=== PATIENT | female | born 1955 | race Caucasian/White ===

== ENCOUNTER → 2017-04-15 | Outpatient (CLI) | payer OTHER ==
--- NOTE | 2017-04-15 17:20 | CONS ---
CONSULTATION A 61-year-old female patient coming in accompanied by her due to concerns of sleep apnea. The patient was recently hospitalized at [facility] for a bout of atrial fibrillation. This occurred at the time of respiratory tract infection/bronchitis for which she was hospitalized briefly and ultimately she converted to normal sinus rhythm. The patient was discharged home on a combination of metoprolol and Eliquis. Sleep apnea was a concern and for that reason, the patient was referred to me. The patient snores. No witnessed apneas. She denies having any nocturia and denies waking up in the middle of night gasping for air or choking sensation. No restlessness in the lower extremities. She is averaging around 7-8 hours of sleep. Her Alamo score is 8. She has a Mallampati class 4 with significant crowding of the posterior pharynx and she has micrognathia. Current BMI 30.1. No sleepwalking. No sleep talking. No sleep paralysis. No cataplexy. PAST MEDICAL HISTORY: Paroxysmal atrial fibrillation, single episode currently in sinus. Fibrous dysplasia of the right femur and hyperlipidemia. PAST SURGICAL HISTORY: Includes tubal ligation. DRUG ALLERGIES: Not known. OUTPATIENT MEDICATION LIST: Includes metoprolol succinate ER 50 mg p.o. daily, Eliquis 5 mg p.o. b.i.d., ranitidine 150 mg p.o. daily, omeprazole 20 mg p.o. daily. Lipitor 20 mg p.o. daily. SOCIAL HISTORY: Nonsmoker. No history of alcohol. No history of IV drugs. FAMILY HISTORY: History negative for sleep apnea. REVIEW OF SYSTEMS: 12-point review of system was done. Positive findings are mentioned above in the history of present illness. No recent weight gain or weight loss. No head trauma. No substance abuse. No nocturnal chest pain. No nocturnal dyspnea. No nocturnal heartburn. No swelling in the lower extremities. No head trauma. No meningitis. No headaches. No change in mental status. PHYSICAL EXAMINATION: BP is 119/59, pulse 68, respirations 16, temperature 98.3, saturation 96% on room air. BMI 30.1, weight is 181, height is 5 feet 5 inches, neck size is 15 inches. General appearance calm comfortable. HEENT head is atraumatic, normocephalic. NECK: Supple. There is no JVD. No goiter or neck masses. The patient has a Mallampati class 4 with micrognathia. LUNGS: Clear to auscultation. HEART: Sounds are regular. Normal S1, S2. No S3. No murmurs. ABDOMEN: Soft, nontender. No organomegaly. EXTREMITIES: No edema. No cyanosis or clubbing. Skin is negative for wounds or ulcers. NEUROLOGIC: Alert and oriented x3. There is no focal neurological deficit. ASSESSMENT: 1. Suspected obstructive sleep apnea currently under investigation. The patient has snoring with mild degree of hypersomnia Alamo score of 8. She has Mallampati class 4 with micrognathia. 2. Single episode of atrial fibrillation. Currently back in sinus. 3. Hyperlipidemia. PLAN: 1. Sleep in a sidewise body position. 2. Encourage good sleep hygiene measures. 3. Weight loss. 4. Proceed with a screening polysomnogram to look for any significant sleep breathing disorder and decide on treatment accordingly. MMTALITAL / FREDDIEN: [id number] /
== END ==
LOC: SLEEP 14:38
PROVIDERS: ATTEND Internal Medicine Critical Care Medicine
DX: G47.10 Hypersomnia, unspecified (principal); I48.91 Unspecified atrial fibrillation; E78.5 Hyperlipidemia, unspecified; Z79.899 Other long term (current) drug therapy

== ENCOUNTER → 2017-07-22 | Outpatient (CLI) | payer OTHER ==
--- NOTE | 2017-07-22 14:18 | PN ---
PROGRESS NOTE A 61-year-old female patient who is seeing me in followup regarding obstructive sleep apnea. The patient was diagnosed having severe BRADLEY with an AHI of 31. She was also suffering from chronic hypersomnia and sleepiness and Rougon score of 8. On today's evaluation, the patient utilizing her CPAP every night. She is benefitting from the treatment and she is waking up much more alert and refreshed during the day. Her sleep quality is also improved. Based on the compliance data that was collected over the past 30 days, the patient has utilized her CPAP machine every night and her CPAP use for more than 4 hours is above 90%. Average CPAP use around 7.3 hours per night and her average CPAP pressure is around 10.6 cm of water. Her leak factor is 4 L/minute and her AHI while on treatment is down to 1.6. The patient is utilizing an auto CPAP unit with a minimum pressure minimum pressure of 5 and maximum pressure of 20. She has no major somnolence or sleepiness. Rougon score is down to 2. REVIEW OF SYSTEMS: 12-point review of system was done. No sleepwalking or sleep talking. No restlessness of lower extremities. No falls, no change in mental status. No headaches, no cough or sputum production. No respiratory distress. No angina, no palpitations. No nausea, vomiting or diarrhea. No dysuria, frequency, urgency. No wounds, no ulcerations of the skin. No joint pains or arthritis. BP is 133/65, pulse 72, respirations 16. Rougon score is down to 2, weight is 191, temperature 98.3. GENERAL APPEARANCE: Calm, comfortable. Head is atraumatic, normocephalic. Neck is supple. Mallampati class 4. There is no goiter or neck masses. LUNGS: Clear to auscultation. Heart sounds regular rhythm. Normal S1, S2. No S3, S4. No murmurs. ABDOMEN: Soft, nontender. No organomegaly. EXTREMITIES: No edema. No cyanosis or clubbing. NEUROLOGIC: Alert and oriented x3. There is no focal neurological deficits. PSYCHIATRIC: Negative for anxiety or depression. Skin is negative for any wounds or ulceration. IMPRESSION: 1. Severe obstructive sleep apnea with an apnea-hypopnea index of 31, worse during REM. The patient underwent a successful CPAP titration. Currently, she is benefitting from the treatment as reflected on her compliance data and her clinical symptoms. 2. Hypersomnia, improved. 3. Hyperlipidemia. PLAN: This is a successful treatment. The patient is benefitting from the treatment. The patient is compliant. Continue the same setting. The patient is using an AirFit P10 nose pillows. Compliance data was reviewed. No other adjustments will be done for today. Encourage further weight loss and see me back in a year's time in follow up, or earlier if needed. MMODL / IJN: [id number] /
== END ==
LOC: SLEEP 12:05
PROVIDERS: ATTEND Internal Medicine Critical Care Medicine
DX: G47.33 Obstructive sleep apnea (adult) (pediatric) (principal); G47.10 Hypersomnia, unspecified; E78.5 Hyperlipidemia, unspecified; Z99.89 Dependence on other enabling machines and devices

== ENCOUNTER → 2021-10-30 | Outpatient (CLI) | payer MEDICARE ==
--- NOTE | 2021-10-30 15:18 | P.SLEEP ---
History of Present Illness H&P Date: 10/30/21 This is a 65-year-old female patient with known history of obstructive sleep apnea. The patient is coming to see me after many years of interruption's. The patient's last evaluation of the sleep center was on 07/22/2017. The patient was diagnosed having severe BRADLEY with an AHI of 31. She was being treated with therapy and the patient was in a APAP mode pressure minimum of 5 and a maximum of 20. Over the years, the patient showed good success on CPAP therapy and her last compliance evaluation was indicating successful use. Since then, the patient has lost considerable amount of weight. Note that during her last evaluation, she is to wear 191 pounds and currently she is down to 161. The patient since then has quit using her treatment. For now, she has no clear history of slowing. She is going to bed around midnight and she is waking up 8:00 in the morning and she is refreshed and alert during the day. Doesn't take any naps. Her sleep does not seem to be fragmented. No excessive utilization of alcoholic beverages or caffeine. No episodes of falls [address] No sleepwalking. No sleep talking. No new onset parasomnias. No restlessness in lower extremities. She has hypertension and hyperlipidemia and she continues to be under adequate treatment for now. She is coming in for evaluation to see there is any need for ongoing CPAP therapy. She did have issues with atrial fibrillation currently her rhythm is sinus and the patient has stopped her anticoagulants upon the recommendations of her resolution analyst. Review of Systems Constitutional: Denies chills, Denies fever Eyes: denies as per HPI, denies blurred vision, denies bulging eye, denies decreased vision, denies diplopia, denies discharge, denies dry eye, denies irritation, denies itching, denies pain, denies photophobia, denies loss of p eripheral vision, denies loss of vision, denies tunnel vision/blind spots Ears: deny: decreased hearing, ear discharge, earache, tinnitus Ears, nose, mouth and throat: Reports as per HPI Breasts: absent: as per HPI, change in shape, gynecomastia, masses, nipple discharge, pain, skin changes, swelling Respiratory: Reports sleep apnea, Reports snoring Gastrointestinal: Reports as per HPI Genitourinary: Reports as per HPI Menstruation: Reports as per HPI Musculoskeletal: Reports as per HPI Musculoskeletal: absent: ankle pain, ankle stiffness, ankle swelling Integumentary: Reports as per HPI Neurological: Reports as per HPI Psychiatric: Reports as per HPI Endocrine: Reports as per HPI Hematologic/Lymphatic: Reports as per HPI Allergic/Immunologic: Reports as per HPI Past Medical History Past Medical History: Atrial Fibrillation, Hyperlipidemia, Hypertension, Sleep Apnea/CPAP/BIPAP Past Surgical History: Orthopedic Surgery Additional Past Surgical History / Comment(s): ORIF of the right femur Medications and Allergies Home Medications and Allergies Comment(s): Quinapril 2.5 mg by mouth daily, metoprolol 100 mg by mouth daily, Lipitor 10 mg by mouth daily Physical Exam BP is 140/90, pulse is 73, respirations 12, temperature 97.3, saturations 95% room air, weight is 161, body mass index is 26.7 and the patient has an Pauline score of 6. The patient appeared well nourished and normally developed. Vital signs as documented. Head exam is unremarkable. No scleral icterus or corneal arcus noted. Neck is without jugular venous distension, thyromegaly, or carotid bruits. Carotid upstrokes are brisk bilaterally. Lungs are clear to auscultation and percussion. Cardiac exam reveals the PMI to be normally sized and situated. Rhythm is regular. First and second heart sounds normal. No murmurs, rubs or gallops. Abdominal exam reveals normal bowel sounds, no masses, no organomegaly and no aortic enlargement. Extremities are nonedematous and both femoral and pedal pulses are normal.Examination of the skin revealed no evidence of significant rashes, suspicious appearing nevi or other concerning lesions.Neurologically, the patient is awake and alert and the patient does not have any focal neurological deficit. Cranial nerves are essentially intact. Assessment and Plan Plan: Obstructive sleep apnea, severe at baseline with an AHI of 31. Since her original diagnosis, the patient has quit her treatment with CPAP therapy and the patient is currently asymptomatic and her current Pauline score is at 6, and she has lost considerable amount of weight in order of 30 pounds and she is coming in for evaluation. No new onset comorbidities. She has hypertension and hyperlipidemia. She has a remote history of atrial fibrillation or cardiac rhythm remains sinus and she's been taken off anticoagulants. Hypertension Hyperlipidemia Remote history of atrial fibrillation Plan Proceed with a home sleep study to decide if ongoing CPAP therapy is needed regarding this patient's obstructive sleep apnea. Weight is stable for now Patient is a sleep hygiene measures Patient is not having any new onset comorbidities Will make final recommendations based on results of the home sleep study. Sleep Note - Sleep Note Sleep Note: Temperature: Pulse Rate: Respiratory Rate: Blood Pressure: SpO2: Height: Weight: BMI: Neck Circumference:
== END ==
LOC: SLEEP 14:38
PROVIDERS: ATTEND Internal Medicine Critical Care Medicine
DX: G47.33 Obstructive sleep apnea (adult) (pediatric) (principal); I10 Essential (primary) hypertension; E78.5 Hyperlipidemia, unspecified; I48.91 Unspecified atrial fibrillation
CPT/HCPCS: 99202